=== PATIENT | female | born 1960 | race Caucasian/White ===

== ENCOUNTER 2022-06-08 21:10 | Emergency (ER) | payer OTHER, MEDICAID ==
[~2022-06-08] VITALS: Ht 144.8 cm; Wt 72.6 kg
--- NOTE | 2022-06-08 21:16 | NUR ---
Patient to ER bed 6 to gown for evaluation. Side rails up. Report given to Xavier JACOBSON(kong).
[2022-06-08 21:17] VITALS: BP_SYST 139
--- NOTE | 2022-06-08 21:27 | NUR ---
PATIENT RESTING IN BED WITH CAREGIVER PRESENT AT BEDSIDE, WAITING TO BE SEEN. PATIENT SUSTAINED A 3INCH PARTIAL THICKNESS LACERATION TO RIGHT KNEE, BLEEDING CONTROLLED.
[2022-06-08] MEDS ORDERED: LIDOCAINE/EPI 1% 1:100000 20 ML VIAL ONE (22:10)
[2022-06-08] MEDS ORDERED: DIPHTH,PERTUSS(ACELL),TET VAC 0.5 ML VIAL (Tdap) I.M. ONE ×2 (22:13→22:15)
[2022-06-08] MEDS ORDERED: LIDOCAINE/EPI 1% 1:100000 20 ML VIAL INJ ONE (22:15)
[2022-06-08] MEDS ORDERED: LIDOCAINE 1%, 20 ML MDV 20 ML ONE (22:44)
[2022-06-08] MEDS ORDERED: LIDOCAINE 1% 10 MG/ML, 20 ML MDV INJ ONE (22:45)
--- NOTE | 2022-06-08 23:48 | NUR ---
PATIENT TOLERATED THE FLUID INTO JOINT WELL, NEGATIVE OUTCOME, NO JOINT INVOLVEMENT IN LACERATION.
--- NOTE | 2022-06-09 00:33 | NUR ---
DR. GRUBER AT BEDSIDE SUTURING LACERATION AT THIS TIME. PATIENT TOLERATING WELL.
[2022-06-09] MEDS ORDERED: BACITRACIN 1 GM OINT TP ONE (01:13)
[2022-06-09] MEDS ORDERED: levoFLOXacin 500 MG TABLET PO ONE (01:15)
[2022-06-09] MEDS ORDERED: LEVO-62 PO (01:16)
--- NOTE | 2022-06-09 01:17 | NUR ---
PATIENT AMBULATED TO RESTROOM WITH MINIMAL ASSISTANCE.
--- NOTE | 2022-06-09 01:17 | NUR ---
Patient given written and verbal discharge instructions and verbalizes understanding. ER MD discussed with patient the results and treatment provided. Patient in stable condition. ID arm band removed. IV catheter removed intact and dressing applied, no active bleeding. Rx of LEVAQUIN given. Patient educated on pain management and to follow up with PMD. Pain Scale . Opportunity for questions provided and answered. Medication side effect fact sheet provided.
== END 2022-06-09 01:17 | disposition home or self-care (01) ==
LOC: SED 21:10
DX: S81.011A Laceration without foreign body, right knee, initial encounter (principal); Z88.0 Allergy status to penicillin; Z88.1 Allergy status to other antibiotic agents; Z88.2 Allergy status to sulfonamides; Z79.899 Other long term (current) drug therapy; W05.0XXA Fall from non-moving wheelchair, initial encounter; Y93.89 Activity, other specified; Y92.89 Other specified places as the place of occurrence of the external cause; Y99.8 Other external cause status
CPT/HCPCS: 20610; 99283; 73560; 90715; 90471; 12002; J2001